=== PATIENT | female | born 1975 | race Caucasian/White ===

== ENCOUNTER 2024-07-30 18:49 | Emergency (ER) | payer MEDICAID ==
[2024-07-30] MEDS: predniSONE 20 MG Tab PO ONE (19:34)
[2024-07-30] MEDS: Albuterol/Ipratropium 3.0-0.5 MG/3 ML Neb Soln NEB ONE (19:34)
== END 2024-07-30 19:45 | disposition home or self-care (01) ==
LOC: JP.ED 18:49
DX: J45.901 Unspecified asthma with (acute) exacerbation (principal); E03.9 Hypothyroidism, unspecified; Z87.891 Personal history of nicotine dependence; Z88.0 Allergy status to penicillin; Z88.1 Allergy status to other antibiotic agents; Z88.2 Allergy status to sulfonamides; Z88.8 Allergy status to other drugs, medicaments and biological substances; Z79.899 Other long term (current) drug therapy
CPT/HCPCS: 99283; 99284; J7512; J7620

== ENCOUNTER 2024-08-02 15:19 | Emergency (ER) | payer MEDICAID ==
[2024-08-02] MEDS: Albuterol/Ipratropium 3.0-0.5 MG/3 ML Neb Soln NEB ONE (16:33)
== END 2024-08-02 17:35 | disposition home or self-care (01) ==
LOC: JP.ED 15:19
DX: J45.909 Unspecified asthma, uncomplicated (principal); E03.9 Hypothyroidism, unspecified; Z79.899 Other long term (current) drug therapy; Z88.0 Allergy status to penicillin; Z88.2 Allergy status to sulfonamides; Z88.1 Allergy status to other antibiotic agents
CPT/HCPCS: 71046; 99285; J7620